=== PATIENT | female | born 1995 | race Two or more races ===

== ENCOUNTER → 2019-11-29 | Outpatient (CLI) | payer OTHER ==
--- NOTE | 2019-11-29 10:02 | WOMENS IMAGING REPORT ---
EXAM DESCRIPTION: U/S BREAST UNILAT LIMITED COMPLETED DATE/TIME: 11/29/2019 8:08 am REASON FOR STUDY: D24.1 BENIGN NEOPLASM OF RIGHT BREAST- LEFT; D24.1 BENIGN NEOPLASM OF RIGHT BREAST - RIGHT D24.1 BENIGN NEOPLASM OF RIGHT BREAST D24.2 BENIGN NEOPLASM OF LEFT BREAST COMPARISON: None. TECHNIQUE: Real-time and static grayscale imaging performed of the right and left breast targeted to the area of clinical/mammographic concern. Selected color Doppler images recorded. LIMITATIONS: None. FINDINGS: There are well-circumscribed hypoechoic lesions with echogenic capsules consistent with fi broadenomas in both breasts. There are two in the 4-5 o'clock position of the left breast, the large st 1.6 x 1.1 x 1.3 cm. In the right breast there are total of 4 lesions, the largest approximately 1 2 o'clock measuring 2.4 x 1.5 x 2.5 cm. IMPRESSION: Probable benign fibroadenoma. BIRAD: 3 Probably benign finding. Initial short-interval follow-up suggested. RECOMMENDATION: RECOMMENDED FOLLOW-UP: Six-month ultrasound follow-up of both breasts. COMMENT: The [employer] ([employer]) has developed recommendations for screening MRI of the breasts in certain patient populations, to be used in conjunction with mammography. Breast MRI s urveillance may be appropriate for women with more than 20% lifetime risk of developing breast cancer as determined by genetic testing, significant family history of the disease, or history of mantle r adiation for Hodgkins Disease. ACR Practice Guidelines 2008. TECHNICAL DOCUMENTATION: JOB ID: [id number] 2010 [employer]- All Rights Reserved Reading location - IP/workstation name: [email or web address]
== END ==
LOC: WI 06:59
PROVIDERS: ATTEND Family Medicine
DX: D24.1 Benign neoplasm of right breast (principal); D24.2 Benign neoplasm of left breast
CPT/HCPCS: 76642

== ENCOUNTER → 2020-05-30 | Outpatient (CLI) | payer OTHER ==
--- NOTE | 2020-05-30 15:21 | WOMENS IMAGING REPORT ---
EXAM DESCRIPTION: U/S BREAST UNILAT LIMITED IMAGES COMPLETED DATE/TIME: 05/30/2020 2:35 pm REASON FOR STUDY: D24.1 BENIGN NEOPLASM OF RIGHT BREAST; D24.2 BENIGN NEOPLASM OF LEFT BREAST D24.2 BENIGN NEOPLASM OF LEFT BREAST D24.1 BENIGN NEOPLASM OF RIGHT BREAST COMPARISON: 11/29/2019 TECHNIQUE: Real-time and static grayscale imaging performed of the right and left breast targeted to the area of clinical/mammographic concern. Selected color Doppler images recorded. LIMITATIONS: None. FINDINGS: MASS: Within the right breast at the 12 o'clock position there are 3 well-circumscribed hy poechoic masses in parallel orientation measuring on the order of 2.1 x 2.5 x 2.4 cm, 1.8 x 1.6 x 2.6 cm, and 1.6 x 0.8 x 1.9 cm (this lesion previously measured 0.7 x 0.5 x 1.0 cm). Within the right b reast at the 8 o'clock position there is a 1.3 x 0.8 x 1.3 cm well-circumscribed hypoechoic mass in p arallel orientation. Within the left breast at the 4 to 5 o'clock position there are 2 well-circumscribed hypoechoic moni s in parallel orientation measuring on the order of 1.3 x 1.1 x 1.2 cm and 1.6 x 1.7 x 0.9 cm. OTHER: No other significant finding. IMPRESSION: Multiple bilateral masses likely on the basis of benign fibroadenomas. The appearance o f interval increase in size of a single lesion at the 12 o'clock position within the right breast may be due in part to differences in measurement technique. However, recommend repeat sonographic evalu ation of the right breast in 6 months. If unchanged at that time, current recommendations are for no further follow-up imaging. BIRAD: 3 Probably benign finding. Initial short-interval follow-up suggested. RECOMMENDATION: RECOMMENDED FOLLOW-UP: Follow-up sonographic evaluation of right breast findings in 6 months. COMMENT: The [employer] ([employer]) has developed recommendations for screening MRI of the breasts in certain patient populations, to be used in conjunction with mammography. Breast MRI s urveillance may be appropriate for women with more than 20% lifetime risk of developing breast cancer as determined by genetic testing, significant family history of the disease, or history of mantle r adiation for Hodgkins Disease. ACR Practice Guidelines 2008. TECHNICAL DOCUMENTATION: JOB ID: [id number] 2010 [employer]- All Rights Reserved Reading location - IP/workstation name: [email or web address]
== END ==
LOC: WI 12:49
PROVIDERS: ATTEND Nurse Practitioner Family
DX: D24.1 Benign neoplasm of right breast (principal); D24.2 Benign neoplasm of left breast
CPT/HCPCS: 76642